=== PATIENT | female | born 1980 | race Caucasian/White ===

== ENCOUNTER 2018-01-18 17:18 | Emergency (ER) | payer SELFPAY ==
[2018-01-18 17:22] VITALS: BP 124/73; PULSE 120; RESP 20; TEMP 98; O2SAT 99
--- NOTE | 2018-01-18 18:38 | PD ---
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 She denies any dysuria or vaginal discharge. Patient's symptoms started last week. She reports her pain is 9/10, worse with walking. He denies any fevers, chills, nausea, vomiting, abdominal pain. He was gradual, symptoms are moderate in nature. PFSH Past Medical History Medical History: Denies Significant Hx ?: Not LMP: 3 weeks ago Social History Tobacco Use: Yes Allergies-Medications (Allergen,Severity, Reaction): Coded Allergies: No Known Allergies (Unverified , 01/18/18) Reported Meds & Prescriptions Reported Meds & Active Scripts Active Erythromycin Opth Oint 5 Mg/Gm Oint 1 Applic RIGHT EYE QID 7 Days Keflex (Cephalexin) 500 Mg Capsule 500 Mg PO Q8H 10 Days Lotrisone Topical (Betamethasone/Clotrimazole) 1-0.05% Cream 1 Applic TOPICAL BID Review of Systems Except as stated in HPI: all other systems reviewed are Neg Musculoskeletal: Positive: Pain Skin: Positive Lumps Physical Exam Narrative GENERAL: Well-developed, well-nourished, alert female. Presenting in no acute distress. SKIN: Warm and dry. HEAD: Normocephalic. EYES: No scleral icterus. No injection or drainage. NECK: Supple, trachea midline. No JVD or lymphadenopathy. CARDIOVASCULAR: Tachycardic RESPIRATORY: No accessory muscle use. Data Data Last Documented VS Vital Signs Date Time Temp Pulse Resp B/P (MAP) Pulse Ox O2 Delivery O2 Flow Rate FiO2 18 17:22 98.0 120 20 124/73 (90) 99 MDM Medical Decision Making Medical Screen Exam Complete: Yes Emergency Medical Condition: Yes Interpretation(s) Vital Signs Date Time Temp Pulse Resp B/P (MAP) Pulse Ox O2 Delivery O2 Flow Rate FiO2 18 17:22 98.0 120 20 124/73 (90) 99 Differential Diagnosis Bartholin's cyst versus folliculitis versus abscess Narrative Course Patient is a 37-year-old female presenting for evaluation of an abscess. Patient is tachycardic on arrival, she is otherwise well appearing. Pt awaiting bed placement. 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 AMA: The risks of leaving against medical advice without further evaluation treatment were discussed with the patient. These risks include cardiac dysfunction, cardiac dysrhythmia, possible heart attack, possible stroke or . The patient indicated understanding of these risks and appeared to have the capacity to make this decision. Diagnosis Primary Impression: Left against medical advice Abbey Gillette Jan 18, 2018 18:38
[2018-01-18] MEDS ORDERED: LOTR15T TOPICAL (22:28)
[2018-01-18] MEDS ORDERED: CEPH-460 PO (22:28)
[2018-01-18] MEDS ORDERED: ERYTOIN10 RIGHT EYE (22:28)
== END 2018-01-18 18:18 | disposition left against medical advice (07) ==
LOC: NED 17:18
DX: N94.89 Other specified conditions associated with female genital organs and menstrual cycle (principal); R00.0 Tachycardia, unspecified; Z72.0 Tobacco use; Z53.21 Procedure and treatment not carried out due to patient leaving prior to being seen by health care provider
CPT/HCPCS: 99281

== ENCOUNTER 2018-01-18 21:03 | Emergency (ER) | payer MEDICAID ==
[2018-01-18 21:06] VITALS: BP 123/58; PULSE 115; RESP 18; TEMP 97.8; O2SAT 98
[2018-01-18] MEDS ORDERED: CEPH-460 PO (22:28)
[2018-01-18] MEDS ORDERED: ERYTOIN10 RIGHT EYE (22:28)
[2018-01-18] MEDS ORDERED: LOTR15T TOPICAL (22:28)
--- NOTE | 2018-01-18 22:41 | PD ---
HPI . 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 She states that she has had chronic issues with her left groin and has even had a surgical I&D done of the area but has continued to have problems. She has recently developed similar issues in the right groin. That has been present for about a week. It is getting progressively worse. Pain is currently rated 10/10. She denies any systemic complaints such as nausea, vomiting or fever. In addition, she complains with a stye of the right lower eyelid which has been present for months. She states that she has moved to the area from [place] as of about a month ago. She has not yet established herself with a primary care physician. She reports chronic hypo-thyroidism and a history of Crohn's disease which has been treated with a colectomy with no further issues since that time. She states that that was done 11 years ago. PFSH Past Medical History Medical other: Yes (graves disease and chrons ) Thyroid Disease: Yes ?: Not LMP: 12/27/17 Past Surgical History Abdominal Surgery: Yes (ileostomy ) Social History Alcohol Use: Yes (occassionally ) Tobacco Use: Yes (1 pack every other day ) Substance Use: No Allergies-Medications (Allergen,Severity, Reaction): Coded Allergies: No Known Allergies (Unverified , 01/18/18) Reported Meds & Prescriptions Reported Meds & Active Scripts Active Erythromycin Opth Oint 5 Mg/Gm Oint 1 Applic RIGHT EYE QID 7 Days Keflex (Cephalexin) 500 Mg Capsule 500 Mg PO Q8H 10 Days Lotrisone Topical (Betamethasone/Clotrimazole) 1-0.05% Cream 1 Applic TOPICAL BID Review of Systems Except as stated in HPI: all other systems reviewed are Neg General / Constitutional: No: Fever, Chills Eyes: Positive: Other (Painful lesion on the right lower lid), No: Blurred Vision, Drainage Cardiovascular: No: Chest Pain or Discomfort Respiratory: No: Shortness of Breath Gastrointestinal: Positive: Other (Ostomy has been functioning normally), No: Nausea, Vomiting, Diarrhea Skin: Positive Lesions Physical Exam Narrative GENERAL: Awake and alert and in no acute distress. SKIN: Warm and dry. HEAD: Normocephalic/atraumatic. EYES: Pupils are equal. Extraocular movements are intact. She has an erythematous lesion on the right lower eyelid. There is no swelling. NECK: Normal range of motion. : Normal female external genitalia. She has lesions in both inguinal folds which are angry appearing. The most central portion of the lesions has a white color. There is some skin breakdown in the center of lesions. There is no abscess. MUSCULOSKELETAL: Atraumatic. NEUROLOGICAL: Nonfocal. PSYCHIATRIC: Appropriate mood and affect. Data Data Last Documented VS Vital Signs Date Time Temp Pulse Resp B/P (MAP) Pulse Ox O2 Delivery O2 Flow Rate FiO2 01/18/18 21:06 97.8 115 18 123/58 (79) 98 Orders Orders Ed Discharge Order (01/18/18 22:29) [facility] Medical Decision Making Medical Screen Exam Complete: Yes Emergency Medical Condition: Yes Differential Diagnosis My differential diagnosis includes but is not limited to localized wound infection, cellulitis, abscess Narrative Course Patient presents with a chief complaint of lesions to the external genitalia which are very painful. On exam, she appears to have tinea cruris with secondary infection. She is also complaining with a lesion to her right lower eyelid. There is an area of erythema but no swelling of the right lower eyelid. I will discharge her to home with prescription for Lotrisone and Keflex for the genitalia. Erythromycin ophthalmic ointment for the eye. She has been given information regarding [facility] so that she can establish care locally. Diagnosis Primary Impression: Ray Qualified Codes: H00.012 - Hordeolum externum right lower eyelid Additional Impressions: Tinea cruris Cellulitis Qualified Codes: L03.818 - Cellulitis of other sites Patient Instructions: General Instructions Departure Forms: Tests/Procedures Scripts Erythromycin Opth Oint (Erythromycin Opth Oint) 5 Mg/Gm Oint 1 APPLIC RIGHT EYE QID for Infection for 7 Days, #1 TUBE 0 Refills Prov: Samira Erazo MD 01/18/18 Cephalexin (Keflex) 500 Mg Capsule 500 MG PO Q8H for Infection for 10 Days, #30 CAP 0 Refills Prov: Samira Erazo MD 01/18/18 Betamethasone-Clotrimazole Topical (Lotrisone Topical) 1-0.05% Cream 1 APPLIC TOPICAL BID for Fungal infection, #45 GM 0 Refills Prov: Samira Erazo MD 01/18/18 Disposition: 01 DISCHARGE HOME Condition: Stable Samira Erazo MD Jan 18, 2018 22:41
== END 2018-01-18 23:07 | disposition home or self-care (01) ==
LOC: NEPE 21:03
DX: H00.012 Hordeolum externum right lower eyelid (principal); B35.6 Tinea cruris; L03.818 Cellulitis of other sites; K50.90 Crohn's disease, unspecified, without complications; E03.9 Hypothyroidism, unspecified; F17.210 Nicotine dependence, cigarettes, uncomplicated
CPT/HCPCS: 99283

== ENCOUNTER 2018-03-01 08:01 | Emergency (ER) | payer MEDICAID ==
[~2018-03-01] VITALS: Ht 152.4 cm; Wt 55.0 kg
[~2018-03-01 08:01] MED LIST: CEPH-460 PO; ERYTOIN10 RIGHT EYE; LOTR15T TOPICAL
[2018-03-01 08:09] VITALS: BP 118/69; PULSE 104; RESP 16; TEMP 98.2; O2SAT 98
[2018-03-01] MEDS ORDERED: LEVO.1 PO (08:57)
[2018-03-01] MEDS ORDERED: SODIUM CHLOR 0.9% 1000 ML INJ 1,000 ML IV SCH (09:06)
[2018-03-01 09:10] VITALS: PULSE 84; RESP 17; O2SAT 8; O2SAT 98
[2018-03-01] MEDS ORDERED: SODIUM CHLORIDE 0.9% FLUSH 10 ML FLUSH IV FLUSH PRN (09:15)
[2018-03-01] MEDS ORDERED: KETOROLAC TROMETHAMINE 30 MG/ML (IVP) VIAL IVP ONE (09:15)
[2018-03-01 09:41] LABS: AUTOMATED NEUTROPHIL # 5.4 TH/MM3 (1.8-7.7); BASOPHIL # 0.1 TH/MM3 (0-0.2); BASOPHIL % 0.8 % (0.0-2.0); EOSINOPHIL # 0.3 TH/MM3 (0-0.4); EOSINOPHIL % 3.7 % (0.0-4.0); HEMATOCRIT 38.2 % (35.0-46.0); HEMOGLOBIN 12.8 GM/DL (11.6-15.3); LYMPH % 14.1 % (9.0-44.0); LYMPHOCYTE # 1.1 TH/MM3 (1.0-4.8); MEAN CELL VOLUME 92.8 FL (80.0-100.0); MEAN CORPUSCULAR HEMOGLOBIN 31.2 PG (27.0-34.0); MEAN CORPUSCULAR HGB CONC 33.6 % (32.0-36.0); MEAN PLATELET VOLUME 7.6 FL (7.0-11.0); MONO % 10.1 % (0.0-8.0); MONOCYTE # 0.8 TH/MM3 (0-0.9); NEUT % 71.3 % (16.0-70.0); PLATELET COUNT 301 TH/MM3 (150-450); RED BLOOD COUNT 4.12 MIL/MM3 (4.00-5.30); RED CELL DISTRIBUTION WIDTH 13.1 % (11.6-17.2); WHITE BLOOD COUNT 7.5 TH/MM3 (4.0-11.0)
[2018-03-01 09:55] LABS: BILIRUBIN, URINE NEG (NEG); BLOOD, URINE LARGE (NEG); GLUCOSE,URINE NEG (NEG); KETONE, URINE NEG (NEG); MUCUS URINE MANY /lpf (OCC); NITRITE,URINE NEG (NEG); SQUAMOUS EPITHELIAL CELL URINE 9 /hpf (0-5); URINE COLOR YELLOW (YELLW/STRAW); URINE LEUKOCYTE ESTERASE SMALL (NEG)
[2018-03-01 10:04] LABS: ALKALINE PHOSPHATASE 90 U/L (45-117); ALT (GPT) 13 U/L (10-53); TOTAL BILIRUBIN ADULT 0.2 MG/DL (0.2-1.0); TOTAL PROTEIN 7.7 GM/DL (6.4-8.2)
[2018-03-01 10:13] LABS: ALBUMIN 3.6 GM/DL (3.4-5.0); AST (GOT) 18 U/L (15-37); BICARBONATE 28.2 MEQ/L (21.0-32.0); BLOOD UREA NITROGEN 12 MG/DL (7-18); CALCIUM 8.9 MG/DL (8.5-10.1); CHLORIDE 103 MEQ/L (98-107); CREATININE 0.94 MG/DL (0.50-1.00); GLOMERULAR FILTRATION RATE 67 ML/MIN (>89); GLUCOSE,RANDOM 80 MG/DL (74-106); SODIUM (NA) 138 MEQ/L (136-145)
[2018-03-01 10:39] VITALS: BP 90/66; PULSE 76; RESP 16; TEMP 97.9; O2SAT 100
[2018-03-01] MEDS ORDERED: IOHEXOL 350 MG/ML 10 ML VIAL (for RAD DIAG) IVCONTRAST ONE (11:22)
--- NOTE | 2018-03-01 11:35 | RADRPT ---
EXAM DATE: 03/01/2018 11:21 AM EDT AGE/SEX: 37 years / Female INDICATIONS: Groin abscess. History of Crohn's. CLINICAL DATA: This is the patient's initial encounter. Patient reports that signs and symptoms have been present for 1 day and indicates a pain score of 2/10. MEDICAL/SURGICAL HISTORY: Crohn's disease. . Ileostomy ORAL CONTRAST: No oral contrast ingested. RADIATION DOSE: 6.64 CTDI (mGy) COMPARISON: No prior [place] exams available for comparison. TECHNIQUE: Multiple contiguous axial images were obtained through the abdomen and pelvis following b olus infusion of 75 ml Omnipaque 350 (iohexol) nonionic water-soluble contrast as a single exam dos e. No oral contrast ingested. Using automated exposure control and adjustment of the mA and/or kV ac cording to patient size, the radiation dose was kept as low as reasonably achievable to obtain optima l diagnostic quality images. FINDINGS: Lower Lungs: The visualized lower lungs are clear. Liver: The liver has a homogeneous density without space-occupying lesion. There is no dilation of th e biliary tree. Spleen: Homogeneous density without enlargement. Pancreas: Unremarkable without mass or calcification. Kidneys: Normal in size and shape. No evidence of mass or hydronephrosis. Adrenal Glands: Unremarkable. Aorta: The aorta and proximal iliac vessels are grossly unremarkable without aneurysmal dilation. Bowel/Mesentery: Ileostomy right lower quadrant with small stomal hernia Abdominal Wall: Intact. Retroperitoneum: No evidence of adenopathy in the retrocrural, para-aortic, or deep pelvic regions. Bladder: Contours are smooth. Reproductive Organs: There is some enhancement within the uterus of uncertain significance but could be leiomyoma trace pelvic free fluid.. Inguinal: Small lymph nodes in the groin bilaterally. No abscess seen. Bony Structures: Unremarkable. CONCLUSION: 1. No acute inflammatory process. 2. Right ileostomy with small stomal hernia. 3. No groin abscess. 4. Nonspecific enhancement within the uterus likely clinically insignificant. Electronically signed by: Donald Aldana MD 03/01/2018 11:34 AM EDT
--- NOTE | 2018-03-01 11:58 | PD ---
HPI Chief Complaint: Skin Problem Time Seen by Provider: 08:39 Travel History International Travel<30 days: No Contact w/Intl Traveler<30days: No Traveled to known affect area: No History of Present Illness HPI Patient is a 37 year old female, with history of Crohn's disease and ileostomy , who comes in complaining of sores in her groin area as well as her rectum. She has noted these ulcerations for several months now, and says she is just tired of them. She says they have been using. She tried an antifungal cream and an antibiotic without relief. 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 She said that she was told when she had the ileostomy that she no longer needed Crohn's medications, so she has been off them for a while. She denies fever or chills. She denies any nausea or vomiting or any issues with her ostomy. Severity is mild to moderate. PFSH Past Medical History Thyroid Disease: Yes ?: Unknown Past Surgical History Abdominal Surgery: Yes (ileostomy ) Social History Alcohol Use: Yes (occ) Tobacco Use: Yes Substance Use: No Allergies-Medications (Allergen,Severity, Reaction): Coded Allergies: No Known Allergies (Unverified , 03/01/18) Reported Meds & Prescriptions Reported Meds & Active Scripts Active Reported Synthroid (Levothyroxine Sodium) 100 Mcg Tab 100 Mcg PO DAILY Review of Systems Except as stated in HPI: all other systems reviewed are Neg General / Constitutional: No: Fever, Chills HENT: No: Headaches, Lightheadedness Cardiovascular: No: Chest Pain or Discomfort Respiratory: No: Shortness of Breath Gastrointestinal: No: Nausea, Vomiting, Abdominal Pain Skin: Positive Lesions Neurologic: No: Weakness, Dizziness Physical Exam Narrative GENERAL: Awake and alert, no acute distress. SKIN: Erythema in her groin area with areas of ulceration. There is no swelling or leakage of fluids. HEAD: Atraumatic. Normocephalic. EYES: Pupils equal and round. No scleral icterus. No injection or drainage. ENT: No nasal bleeding or discharge. Mucous membranes pink and moist. NECK: Trachea midline. No JVD. CARDIOVASCULAR: Regular rate and rhythm. No murmur appreciated. RESPIRATORY: No accessory muscle use. Clear to auscultation. Breath sounds equal bilaterally. GASTROINTESTINAL: Abdomen soft, non-tender, nondistended. Ostomy is patent. MUSCULOSKELETAL: No obvious deformities. No clubbing. No cyanosis. No edema. NEUROLOGICAL: Awake and alert. No obvious cranial nerve deficits. Motor grossly within normal limits. Normal speech. PSYCHIATRIC: Appropriate mood and affect; insight and judgment normal. Data Data Last Documented VS Vital Signs Date Time Temp Pulse Resp B/P (MAP) Pulse Ox O2 Delivery O2 Flow Rate FiO2 03/01/18 10:39 97.9 76 16 90/66 (74) 100 Orders Orders Complete Blood Count With Diff (03/01/18 09:06) Comprehensive Metabolic Panel (03/01/18 09:06) Urinalysis - C+S If Indicated (03/01/18 09:06) Ct Abd/Pel W Iv Contrast(Rout) (03/01/18 09:06) Iv Access Insert/Monitor (03/01/18 09:06) Ecg Monitoring (03/01/18 09:06) Oximetry (03/01/18 09:06) Sodium Chlor 0.9% 1000 Ml Inj (Ns 1000 M (03/01/18 09:06) Sodium Chloride 0.9% Flush (Ns Flush) (03/01/18 09:15) Ketorolac Inj (Toradol Inj) (03/01/18 09:15) Ed Urine Pregnancytest Poc (03/01/18 09:06) Urine Culture (03/01/18 09:15) Iohexol 350 Inj (Omnipaque 350 Inj) (03/01/18 11:22) Labs Laboratory Tests Test 03/01/18 09:15 03/01/18 09:18 Urine Color YELLOW Urine Turbidity HAZY Urine pH 6.0 Urine Specific [place] 1.031 Urine Protein 30 mg/dL Urine Glucose (UA) NEG mg/dL Urine Ketones NEG mg/dL Urine Occult Blood LARGE Urine Nitrite NEG Urine Bilirubin NEG Urine Urobilinogen LESS THAN 2.0 MG/DL Urine Leukocyte Esterase SMALL Urine RBC 20 /hpf Urine WBC 10 /hpf Urine Squamous Epithelial Cells 9 /hpf Urine Mucus MANY /lpf Microscopic Urinalysis Comment CULTURE INDICATED White Blood Count 7.5 TH/MM3 Red Blood Count 4.12 MIL/MM3 Hemoglobin 12.8 GM/DL Hematocrit 38.2 % Mean Corpuscular Volume 92.8 FL Mean Corpuscular Hemoglobin 31.2 PG Mean Corpuscular Hemoglobin Concent 33.6 % Red Cell Distribution Width 13.1 % Platelet Count 301 TH/MM3 Mean Platelet Volume 7.6 FL Neutrophils (%) (Auto) 71.3 % Lymphocytes (%) (Auto) 14.1 % Monocytes (%) (Auto) 10.1 % Eosinophils (%) (Auto) 3.7 % Basophils (%) (Auto) 0.8 % Neutrophils # (Auto) 5.4 TH/MM3 Lymphocytes # (Auto) 1.1 TH/MM3 Monocytes # (Auto) 0.8 TH/MM3 Eosinophils # (Auto) 0.3 TH/MM3 Basophils # (Auto) 0.1 TH/MM3 CBC Comment DIFF FINAL Differential Comment Blood Urea Nitrogen 12 MG/DL Creatinine 0.94 MG/DL Random Glucose 80 MG/DL Total Protein 7.7 GM/DL Albumin 3.6 GM/DL Calcium Level 8.9 MG/DL Alkaline Phosphatase 90 U/L Aspartate Amino Transf (AST/SGOT) 18 U/L Alanine Aminotransferase (ALT/SGPT) 13 U/L Total Bilirubin 0.2 MG/DL Sodium Level 138 MEQ/L Potassium Level 3.5 MEQ/L Chloride Level 103 MEQ/L Carbon Dioxide Level 28.2 MEQ/L Anion Gap 7 MEQ/L Estimat Glomerular Filtration Rate 67 ML/MIN MDM Medical Decision Making Medical Screen Exam Complete: Yes Emergency Medical Condition: Yes Medical Record Reviewed: Yes Differential Diagnosis Crohn's flare versus cellulitis versus ulcerations Narrative Course Patient is a 37-year-old female who comes in complaining of sores in her groin area. Exam shows areas of erythema with some ulcerations. IV established, labs sent. Labs show no acute abnormalities. Urinalysis is positive for white blood cells and bacteria. CT abdomen pelvis performed shows no acute abnormalities. Last 24 hours Impressions Abdomen/Pelvis CT 03/01/18 0906 Signed Impressions: CONCLUSION: 1. No acute inflammatory process. 2. Right ileostomy with small stomal hernia. 3. No groin abscess. 4. Nonspecific enhancement within the uterus likely clinically insignificant. I believe her symptoms may be due to her Crohn's disease. She will be given prescriptions for Cipro and Flagyl which will also treat her UTI. Also given a prescription for prednisone. Mandatory referral placed to GI. She is advised to follow-up with gastroenterology and establish a primary care doctor. Advised to return to the ED as needed for any worsening symptoms. Diagnosis Primary Impression: Skin ulceration Qualified Codes: L98.491 - Non-pressure chronic ulcer of skin of other sites limited to breakdown of skin Additional Impression: UTI (urinary tract infection) Qualified Codes: N30.00 - Acute cystitis without hematuria Referrals: Gertrude Awan MD call for appointment Patient Instructions: Acute Wounds (ED), General Instructions, Urinary Tract Infection in Women (ED) Additional Instructions: Take all of your antibiotics. Avoid alcohol while taking the Flagyl as it will make you violently ill. Follow-up with gastroenterology. Return to the ED as needed for any worsening symptoms. Scripts Methylprednisolone Dosepak (Medrol Dosepak) 4 Mg Dspk 4 MG PO DIRECTED, #1 DSPK 0 Refills Per Pharmacist direction Prov: Tati Alejandro MD 03/01/18 Metronidazole (Flagyl) 500 Mg Tab 500 MG PO TID for Infection for 7 Days, TAB 0 Refills Prov: Tati Alejandro MD 03/01/18 Ciprofloxacin (Cipro) 500 Mg Tab 500 MG PO BID for Infection for 7 Days, #14 TAB 0 Refills Prov: Tati Alejandro MD 03/01/18 Disposition: 01 DISCHARGE HOME Condition: Stable Tati Alejandro MD March 01, 2018 11:58
[2018-03-01] MEDS ORDERED: MEDR4PAK PO (12:20)
[2018-03-01] MEDS ORDERED: METR-1 PO (12:20)
[2018-03-01] MEDS ORDERED: CIPR-9 PO (12:20)
[2018-03-01 12:30] VITALS: BP 130/77; TEMP 97.8
== END 2018-03-01 12:30 | disposition home or self-care (01) ==
LOC: NEPE 08:01
DX: L98.491 Non-pressure chronic ulcer of skin of other sites limited to breakdown of skin (principal); N30.00 Acute cystitis without hematuria; K62.6 Ulcer of anus and rectum; K50.90 Crohn's disease, unspecified, without complications; E07.9 Disorder of thyroid, unspecified; Z72.0 Tobacco use; Z93.2 Ileostomy status
CPT/HCPCS: 74177; 80053; 81001; 84703; 85025; 87086; 96361; 96374; 99284; J1885; J7030; Q9967